=== PATIENT | male | born 1945 | race Caucasian/White ===

== ENCOUNTER 2016-07-02 18:51 | Observation (INO) | payer MEDICARE, OTHER ==
[~2016-07-02] VITALS: Ht 188 cm; Wt 120.5 kg
[2016-07-02 18:59] VITALS: BP_SYST 1; BP_SYST 138; BP_DIAS 135; BP_DIAS 78; PULSE 71; RESP 16; O2SAT 96
--- NOTE | 2016-07-02 19:35 | ED.REPORT ---
HPI-General Illness Date of Service Jul 02, 2016 ED Provider: Dr. Po Bustamante 71 year old male with a hx of esophageal stricture requiring esophageal dilation who presents to the ER with dysphagia after eating salmon and rice last night. Pt has been able to drink water, but has been vomiting anything else including chicken broth and ice cream. Pt was seen last night in the [place] ER. He was given glucagon with no change in symptoms. Pt has not been able to take his medications. He states that the symptoms are similar to previous esophageal stricture. He reports a feeling of blockage in the upper abd. Pt denies SOB, abd pain and CP. Nursing Notes Stated Complaint: CANT GET FOOD DOWN Chief Complaint: General Complaint Nursing Notes Reviewed: Yes Allergies: Coded Allergies: No Known Allergies (Unverified , 07/02/16) Scheduled Gabapentin (Gabapentin) 300 Mg Capsule 300 MG PO BID Miscellaneous Medications Ascorbic Acid (Vitamin C) 100 Mg Tablet 100 MG PO Brimonidine Tartrate/Timolol (Combigan Eye Drops) 5 Ml Drops 5 ML OCULAR Cholecalciferol (Vitamin D3) (Vitamin D) 5,000 Unit Capsule Unknown Dose PO Ferrous Sulfate, Dried (Iron) 159 Mg Tablet.er Unknown Dose PO Multivitamin (Once Daily) 1 Each Tablet 1 EACH PO [place]-3 Fatty Acids (Fish Oil) 500 Mg Capsule. 500 MG PO Travoprost (Travatan Z) 5 Ml Drops 5 ML OCULAR General Time Seen by MD: 19:35 Chief Complaint Other (Dysphagia) Hx Obtained From: Patient Arrived By: Walk-in Sudden in Onset?: Yes Onset Occurred: Yesterday Symptom Duration: Since onset Severity: Current: No pain currently Associated with: Denies: Chest pain, Shortness of breath Exacerbated by: Drinking, Eating Recent Healthcare: Recent doctor visit Similar Sx Previous: Yes Past Medical History Past Medical History Esophageal stricture [place] Past Surgical History Esophageal dilation Reports: Cataract surgery Smoking History Never Smoker Social History Alcohol Use: "Social" Drug Use: Denies drug use Ambulatory Status Independent Review of Systems Full Review of Systems Constitutional: Denies: Fever Respiratory: Denies: Shortness of breath Cardiovascular: Denies: Chest pain GI: Reports: Dysphagia, Vomiting, Denies: Abdominal pain, Hematemesis Complete sys rev & neg: except as marked. Physical Exam Vital Signs Vital Signs Date Time Temp Pulse Resp B/P Pulse Ox O2 Delivery O2 Flow Rate FiO2 07/02/16 18:59 36.8 71 16 138/78 96 Room Air Initial VS: Reviewed General/Constitutional: Well-developed, Well-nourished Head / Eyes: Atraumatic, Normocephalic, PERRL ENT: Mucous membranes moist, Conjunctiva normal, No scleral icterus Neck: Supple, Non-tender, Full range of motion Respiratory: Breath sounds normal, Clear to auscultation, No respiratory distress Cardiovascular: Regular rate & rhythm, Heart sounds normal, Intact distal pulses Abdomen / GI: Soft, Non-tender, No guarding, No rebound, No distention Extremities: Vascular intact, Neuro intact, No swelling, No tenderness Skin: Warm, Dry, No cyanosis Neurologic: Alert, Oriented, Nonfocal Psychiatric: Mood/affect normal, Behavior normal, Normal thought content Interpretation & Diagnostics Lab Results Interpretation Test 07/02/16 20:11 Hold Purple Top Tube Received (Received) Hold Blue Top Tube Received (Received) Hold [place] Top Tube Received (Received) Hold Greco Top Tube Received (Received) General Lab Results Interp 1: Labs reviewed Pulse Oximetry Interpretation Pulse Oximetry: Pulse Ox normal (96), On room air Re-Eval/Medical Decision Time of Eval: 19:52 Re-Evaluation/Progress Note: Unable to tolerate soda. Pt understands and agrees with plan for endoscopy. Consultation : Referral / Consult Name: Johnnie Dias MD Call Returned at: 19:54 Manager Application: Will see patient Note: GI Counseled Regarding: Diagnosis, Lab results Discharge & Departure Primary Impression: Food impaction of esophagus Encounter type: initial encounter Qualified Code: T18.128A - Food in esophagus causing other injury, initial encounter Disposition: ADMITTED TO HOSPITAL (for endoscopy) Discharge Condition All VS Reviewed: Yes Referrals: Deandra Valerio MD (PCP) Kathleenibe Attestation Portions of this note were transcribed by Loreto Beard. I, (Dr. Bustamante) personally performed the history, physical exam and medical decision-making; I reviewed and confirmed the accuracy of the information in the transcribed note. Signed by: Loreto Beard. Myriam, 07/02/16, 2296 copies to: Deandra Valerio MD, Todd P DO Jul 02, 2016 19:35 Loreto Beard Jul 02, 2016 19:51
[2016-07-02] MEDS ORDERED: OMEG500C PO (20:17)
[2016-07-02] MEDS ORDERED: TRAV5DRO OCULAR (20:17)
[2016-07-02] MEDS ORDERED: ASCO100T11 PO (20:17)
[2016-07-02] MEDS ORDERED: FERR159T2 PO (20:17)
[2016-07-02] MEDS ORDERED: BRIM5DRO OCULAR (20:17)
[2016-07-02] MEDS ORDERED: CHOL500051 PO (20:17)
[2016-07-02] MEDS ORDERED: MULT-666 PO (20:17)
[2016-07-02] MEDS ORDERED: GABA-502 PO (20:17)
--- NOTE | 2016-07-02 21:59 | PCM.HPANE ---
Patient Data Date of Service: Jul 02, 2016 Surgeon Admitting Provider: Attending Provider:Johnnie Dias MD Primary Care Physician:Deandra Valerio MD Other Provider: Reason for Visit Esophageal Foreign Body Ht/WT & BMI Weight (Kilograms): 110 Body Mass Index Allergies Coded Allergies: No Known Allergies (Unverified , 07/02/16) Diabetes History Hx Diabetes?: No MRSA MRSA: No Medications Hypertension Medication: No Home Meds Incl Beta [place]: No Reported Medications Ferrous Sulfate, Dried (Iron)159 Mg Tablet.erUnknown Dose PO 07/02/16 Cholecalciferol (Vitamin D3) (Vitamin D)5,000 Unit CapsuleUnknown Dose PO 07/02/16 Brimonidine Tartrate/Timolol (Combigan Eye Drops)5 Ml Drops5 Ml OCULAR 07/02/16 Travoprost (Travatan Z)5 Ml Drops5 Ml OCULAR 07/02/16 [place]-3 Fatty Acids (Fish Oil)500 Mg Capsule.dr500 Mg PO 07/02/16 Multivitamin (Once Daily)1 Each Tablet1 Each PO 07/02/16 Ascorbic Acid (Vitamin C)100 Mg [id number] Mg PO 07/02/16 Gabapentin 300 Mg Ifwjrhl459 Mg PO BID Ref 0 07/02/16 History History of ENT Problems?: Yes HEENT History: Positive for:: Glaucoma Hx of Heart Problems?: Yes Cardiovascular History: Positive for:: Irregular Heartbeat (likely PVC) Denies:: Congestive Heart Failure Hypertension Hx of Respiratory Problem?: Yes (recent URI) Respiratory History: Denies:: Tuberculosis Hx Neurologic Problems?: Yes Neurological History: Positive for:: Peripheral Neuropathy Hx of GI Problems?: Yes (food impaction) Hx of Problems?: Yes (stage III chronic kidney disease) Hx Musculoskeletal Problems?: No Hx of Psycho/Social Problems?: No Hx Surgeries?: Yes (cataract) Other History: Positive for:: Cancer ([place]) Hx Diabetes: No Hx Alcohol Use: YesHx Substance Use: NoHave You Smoked inLast 12 mo: No Stop/Bang Risk Assessment Category Category 1A: Patient has history of documented sleep apnea, and HAS NOT received any narcotic, sedative or anesthesia administration during this stay. Category 1B: Patient has history of documented sleep apnea, and HAS received any narcotic , sedative or anesthesia administration during this stay Category 2: Patient has SUSPECTED Obstructive Sleep Apnea, and HAS received any narcotic , sedative or anesthesia administration during this stay. Category 3: Patient has SUSPECTED Obstructive Sleep Apnea and HAS NOT received narcotic, sedative or anesthesia administration during this stay. Category 4: Outpatient in Procedural Areas with known sleep apnea or who screen positive for High Risk via the STOP/BANG questionnaire. Exam Exam Vital Signs Vital Signs Date Time Temp Pulse Resp B/P Pulse Ox O2 Delivery O2 Flow Rate FiO2 07/02/16 18:59 36.8 71 16 138/78 96 Room Air General Appearance: Alert, Oriented X3, Cooperative HEENT/AIRWAY: MP 3, Neck Movement (Full, [place]), Mouth Opening (Limited) Lungs: Clear to Auscultation, Normal Air Movement, Rhonchorus (recent URI) Heart: Regular Rate/Rhythm, Normal S1, Normal S2 Meds/Labs/Diagnostics Labs Test 07/02/16 20:11 Hold Purple Top Tube Received (Received) Hold Blue Top Tube Received (Received) Hold [place]va Top Tube Received (Received) Hold Greco Top Tube Received (Received) Plan Impression Patient chart reviewed, patient interviewed and anesthestic plan with risks, benefits, and alternatives discussed, and informed consent obtained. NPO Status: presumed full due to food impaction ASA Physical Status: ASA2 Mod Systemic Disease Anesthetic Plan: GA Bene/Risks/Altern/Consents: Yes HP Complete Prior to Induction: Yes Magnus Marshall MD Jul 02, 2016 21:58
[2016-07-02] MEDS ORDERED: Lactated Ringer's 500 ML IV PRN (22:01)
[2016-07-02] MEDS ORDERED: Lactated Ringer's 1,000 ML IV SCH (22:01)
[2016-07-02] MEDS ORDERED: Atropine 0.4 mg/mL Inj IVPUSH PRN (22:05)
[2016-07-02] MEDS ORDERED: Labetalol 5 mg/mL 4 mL Inj IV PRN (22:05)
[2016-07-02] MEDS ORDERED: EPHEDrine Sulfate 50 mg/mL Inj IVPUSH PRN (22:05)
[2016-07-02] MEDS ORDERED: Phenylephrine 10,000 mCg/mL Inj IVPUSH PRN (22:05)
[2016-07-02] MEDS ORDERED: fentaNYL-PF 50 mCg/mL 2 mL Inj IVPUSH PRN (22:05)
[2016-07-02] MEDS ORDERED: MetoCLOpramide 5 mg/mL 2 mL Inj IVPUSH PRN (22:05)
[2016-07-02] MEDS ORDERED: Ondansetron 2 mg/mL 2 mL Inj IVPUSH PRN (22:05)
[2016-07-02] MEDS ORDERED: hydrALAZINE 20 mg/mL Inj IVPUSH PRN (22:05)
[2016-07-02] MEDS ORDERED: HYDROmorphone 1 mg/mL Inj IVPUSH PRN (22:05)
[2016-07-02] MEDS ORDERED: Dexamethasone 4 mg/mL Inj IVPUSH PRN (22:05)
[2016-07-02] MEDS ORDERED: Lactated Ringer's 1,000 ML IV ONE (22:07)
[2016-07-02 22:15] VITALS: BP 151/73; PULSE 73; RESP 18; O2SAT 95
[2016-07-02 23:28] VITALS: BP 111/83; PULSE 90; RESP 14; O2SAT 98
[2016-07-02 23:33] VITALS: BP 150/81; PULSE 87; RESP 15; O2SAT 98
--- NOTE | 2016-07-02 23:36 | PCM.ANEP1 ---
Post Anesthesia Phase 1 PACU Phase 1 Assessment Date of Service: Jul 02, 2016 Vital Signs Vital Signs Date Time Temp Pulse Resp B/P Pulse Ox O2 Delivery O2 Flow Rate FiO2 07/02/16 23:33 87 15 150/81 98 Simple Mask 07/02/16 23:28 36.4 90 14 111/83 98 Simple Mask 07/02/16 22:15 73 18 151/73 95 Room Air 07/02/16 18:59 36.8 71 16 138/78 96 Room Air Anesthetic Administered: GA Level of Alertness: Awake, talking WILLIS's with Equal Strength: Yes Pain: No Nausea or Vomiting: No Oxygen Delivery: Simple Mask Lungs: Normal Air Movement, Rhonchorus (recent URI) Magnus Marshall MD Jul 02, 2016 23:36
--- NOTE | 2016-07-02 23:41 | PCM.ANEP2 ---
Post Anesthesia Evaluation ASA/CMS Post Anesthesia Date of Service: Jul 02, 2016 VS in Patient's Normal Range?: Yes Resp Stable; Airway Patent?: Yes CV Function & Hydration Stable: Yes Mental Status Recovered?: Yes Pain control Satisfactory?: Yes N/V Control Satisfactory?: Yes Magnus Marshall MD Jul 02, 2016 23:41
[2016-07-02 23:46] VITALS: BP 151/77; PULSE 90; RESP 21; O2SAT 94
[2016-07-02] MEDS ORDERED: fentaNYL-PF 50 mCg/mL 2 mL Inj ONE (23:55)
[2016-07-02] MEDS ORDERED: Propofol 10,000 mCg/mL 20 mL Inj ONE (23:55)
[2016-07-02] MEDS ORDERED: Lidocaine PF 1% 30 mL Inj ONE (23:55)
[2016-07-02] MEDS ORDERED: Succinylcholine Chloride 20 mg/mL 5 mL Inj ONE (23:55)
--- NOTE | 2016-07-02 23:55 | NUR ---
New admit Pt arrived [place] [facility] at 2355 via bed transport. Alert and oriented x 4. Excellent Historian. Denies pain, chest pain, shortness of breath, n/v/d and gi upset. RT hand IV D/C with catheter intact. O2 97% 1L NC Urinal provided and Pt educated on using call light for safety due to possible anesthesia effects. Pt seems to have a clear understanding of risks and benefits. Will continue to monitor for side effects to anesthesia, resp. distress, shortness of breath, and pain.
[2016-07-03 00:17] VITALS: BP 133/76; PULSE 82; RESP 20; O2SAT 97
[2016-07-03] MEDS ORDERED: Ondansetron 2 mg/mL 2 mL Inj IVPUSH PRN (00:30)
[2016-07-03] MEDS ORDERED: Alum-Mag Hydrox-Simeth 30 mL Suspension PO PRN (00:30)
[2016-07-03] MEDS ORDERED: Polyethylene Glycol (PEG) 17 Gm Powder PO PRN (00:30)
--- NOTE | 2016-07-03 00:35 | CONS ---
[address] [address] CONSULTATION REPORT PATIENT: FRANCISCO STARKS : 1945 MR#: [id number] ADMIT: 07/02/2016 JOB ID: [id number] DATE OF SERVICE: 07/02/2016 REASON FOR CONSULTATION: Food impaction. HISTORY OF PRESENT ILLNESS: This is a 71-year-old, male, with a history of peptic ulcer disease, who presents for consultation for food impaction. The patient states at 9 p.m. yesterday, he ate salmon and rice, and was unable to swallow anything after that. The patient then presents to the emergency department for further evaluation. The patient had an EGD and colonoscopy performed in 2012, which was normal per the patient. I have no records. The patient states that he does have a family history of colon cancer, father diagnosed at the age of 80, but no inflammatory bowel disease, or celiac disease impairment. The patient denies rectal bleeding, positive for nausea, vomiting. No chest pain, shortness of breath, abdominal pain, skin rashes or joint pain. PAST MEDICAL HISTORY: As stated above. PAST SURGERIES: None. ALLERGIES: No known drug allergies. MEDICATIONS: Unknown. SOCIAL HISTORY: The patient states that he drinks alcohol, a fifth, a pint one time per month, but no smoking. No IV drug use. FAMILY HISTORY: Positive for colon cancer, father diagnosed at age of 80. No inflammatory bowel disease, or celiac disease. REVIEW OF SYSTEMS: The patient denies headache, blurred vision. Positive for nausea and vomiting. No chest pain, shortness of breath, abdominal pain, skin rash, joint pain. PHYSICAL EXAMINATION: Vital signs upon presentation: Temperature 36.8, pulse 71, blood pressure 138/78, respiratory rate 16. Satting 96% on room air. General: Head: No scars. Anicteric. Throat supple. Lungs: Clear to auscultation bilaterally. Cardiovascular: Regular rhythm and rate. Abdomen: Soft, nondistended, nontender. Normal bowel sounds. Extremities: No cyanosis, clubbing or edema. LABORATORY DATA: Pending. ASSESSMENT AND PLAN: A 71-year-old, male, with history of peptic ulcer disease, presents for food impaction with salmon and rice. RECOMMENDATIONS: 1. NPO. 2. EGD with anesthesia to be performed today.
[2016-07-03 00:49] LABS: BASOPHILS % (AUTO) 0.5 % (0-3); EOSINOPHILS % (AUTO) 2.1 % (0-5); MONOCYTES % (AUTO) 14.4 % (4-12); Mean Corpuscular Hemoglobin 29.6 pg (27.0-35.0); Mean Corpuscular Volume 88.1 fL (81-100); NEUTROPHILS % (AUTO) 64.1 % (40-74); Platelet Count 143 bil/L (150-400)
--- NOTE | 2016-07-03 00:54 | ENDO ---
[address] [address] ENDOSCOPY PROCEDURE PATIENT: FRANCISCO STARKS : 1945 MR#: [id number] ADMIT: 07/02/2016 JOB ID: [id number] OPERATION: Esophagogastroduodenoscopy with biopsy. PREOPERATIVE DIAGNOSIS(ES): Food impaction. POSTOPERATIVE DIAGNOSIS(ES): 1. [place] was seen in the distal esophagus, which was removed by [place] [employer] and pushed into the stomach. 2. Mild nonerosive gastritis, status post biopsy. 3. Status post Mark fundoplication. ANESTHESIA: General anesthesia. COMPLICATIONS: None. BLOOD LOSS: Minimal. DESCRIPTION OF PROCEDURE: After risks and benefits were explained to the patient, informed consent was obtained. After anesthesia was administered, the upper endoscope was inserted into the mouth, intubating the esophagus, the stomach and 2nd portion of the duodenum. Mucosa carefully examined. After the procedure was done, the scope was withdrawn and the procedure terminated. FINDINGS: Upon entering the esophagus, there was a large amount of salmon that was seen in the distal esophagus. This was removed by [place] [employer] and pushed into the stomach with ease. The Z-line was located 40 cm from incisors. Upon entering the stomach, there is mild nonerosive gastritis. No masses, ulcers, or lesions were seen. Retroflexion showed status post Mark fundoplication from prior surgery. Duodenal bulb, first and second portion were normal. Biopsies taken in the antrum, body of the stomach, mid and distal esophagus. IMPRESSIONS: 1. [place] seen in the distal esophagus which was removed by [place] [employer] and pushed into the stomach with ease. 2. Mild nonerosive gastritis. 3. Mark fundoplication was seen retroflexion from prior surgery. RECOMMENDATIONS: 1. Await pathology results. 2. Given the fact that the patient has nobody to drive him home, the patient will be admitted to the hospital service for observation overnight. Okay to discharge home from a GI standpoint in the morning given the fact the patient received general anesthesia during the procedure. 3. The patient is to follow up with his primary care doctor. SERAFIN
--- NOTE | 2016-07-03 02:32 | PCM.HPMED ---
Subjective Date of Service Jul 03, 2016 Primary Provider: Admitting Physician: Johnnie Dias MD Primary Care Physician: Deandra Valerio MD Attending Physician: Johnnie Dias MD Admit Status: From the Emergency Department, 23-Hour Observation Chief Complaint: Dysphagia History of Present Illness: Patient is a 71 year old male with history of peptic ulcer disease and esophageal stricture presented to [facility] ER with c/o dysphagia after eating salmon and rice for dinner last night. Since then patient has been able to drink water but has not been able to tolerate solids even chicken broth and ice cream. He is also not able to take his medications. Patient was seen last night in the [place] ER. He was given glucagon with no change in symptoms. Patient reports having the same symptoms during the previous esophageal stricture. Dr. Dias was consulted who diagnosed the patient with food impaction. Patient underwent esophagogastroduodenoscopy with biopsy with anesthesia. Review of Systems: A comprehensive review of systems was conducted with the patient and found to be negative except as above in the History of Present Illness. Allergies Coded Allergies: No Known Allergies (Unverified , 07/02/16) Home Medications Ferrous Sulfate, Dried (Iron)159 Mg Tablet.erUnknown Dose PO 07/02/16 Cholecalciferol (Vitamin D3) (Vitamin D)5,000 Unit CapsuleUnknown Dose PO 07/02/16 Brimonidine Tartrate/Timolol (Combigan Eye Drops)5 Ml Drops5 Ml OCULAR 07/02/16 Travoprost (Travatan Z)5 Ml Drops5 Ml OCULAR 07/02/16 [place]-3 Fatty Acids (Fish Oil)500 Mg Capsule.dr500 Mg PO 07/02/16 Multivitamin (Once Daily)1 Each Tablet1 Each PO 07/02/16 Ascorbic Acid (Vitamin C)100 Mg [id number] Mg PO 07/02/16 Gabapentin 300 Mg Llqtclu754 Mg PO BID Ref 0 07/02/16 PMH Peptic ulcer disease Esophageal stricture Surgical History Esophageal dialation Mark fundoplication Cataract surgery Left knee surgery Carotid artery laceration surgery Collarbone surgery Family History Significant for colon cancer in the father, prostate cancer in the brother, breast cancer in the mother and grandmother Social History Hx Alcohol Use: Yes Alcoholic Drinks Per Day: 5/8 per month Hx Substance Use: No Hx Tobacco Use: No Smoking Status: Former Smoker, Never Smoker Living Arrangement: Other (Lives by himself ) Exam Vital Signs Vital Sign - Last Date Time Temp Pulse Resp B/P Pulse Ox O2 Delivery O2 Flow Rate FiO2 07/03/16 00:17 36.8 82 20 133/76 97 Nasal Cannula 2.00 Intake and Output 07/02/16 07/02/16 07/03/16 Cumulative From/Thru 15:00 23:00 07:00 07/02/16 22:28 - 07/03/16 00:17 Intake Total 400 ml 400 ml Balance 400 ml 400 ml Intake IV Total 400 ml 400 ml Exam General: Alert, Cooperative Head: Normal Eyes: PERRLA, EOMI, Scleral Anicteric Nose: Mucous Membr Moist/[place] Mouth: Mucous Membr Moist/[place] Neck: Supple Chest & Lungs: Decreased breath sounds bilaterally. Clear to auscultation bilaterally. No rales, rhonchi, or wheezing Cardiovascular: Regular Rate/Rhythm Pulses: Normal carotid, radial, femoral, DP, PT Abdomen: Non-tender, Non-distended, Normoactive bowel tones, Soft Extremities: No cyanosis/clubbing/, 1+ edema bilat Neurological: Grossly Neurologically Intact, Normal Speech Lab and Diagnostics Result Diagram: 07/02/16201007/02/162010 Additional Diagnostics: EGD with anesthesia performed by Dr. Dias revealed food impaction in the distal esophagus (removed by [place]), mild nonerosive gastritis Assessment & Plan This is a 71 year old male with history of esophageal stricture who drove himself to the hospital with main complaint of dysphagia after eating dinner last night. Patient has been diagnosed with food impaction and endoscopy with anesthesia has been performed. Patient admitted for 23 hour observation r/ t anesthesia sedation. # Food impaction of esophagus, acute, present on admission - Esophagogastroduodenoscopy with biopsy under general anesthesia performed by Dr. Dias - Patient tolerated procedure well - Observation overnight - D/c home in the morning # Peptic ulcer disease, chronic, stable Pain Evaluation: Adequate Pain Control GI Prophylaxis: H2 jamie, Proton Pump Inhibitor, Not indicated VTE Prophylaxis: SCDs Resuscitation Status: CPR: Attempt Resuscitation Attending Statement The patient was seen and examined together with house staff on 07/03/2016 and I agree with the history, exam and plan as outlined in the note above. copies to: Deandra Valerio MD, Oksana S DO Jul 03, 2016 02:32 Henny Lee DO Jul 03, 2016 03:30
[2016-07-03 05:15] VITALS: BP 156/77; PULSE 88; RESP 16; O2SAT 97
[2016-07-03 08:11] VITALS: BP 157/60; PULSE 95; RESP 18; O2SAT 96
--- NOTE | 2016-07-03 08:17 | NUR ---
Elevated Temp Contacted Dr. Ibanez with the following cook page: Patient's current temp is 37.6. Patient is also questioning when he will be discharged. Please advise. Thank you. Zainab GLOVER
--- NOTE | 2016-07-03 10:30 | NUR ---
Morning Rounds Staffed patient's case with Dr. Liriano and case management. Dr. Liriano stated patient will be discharge today.
--- NOTE | 2016-07-03 10:49 | PCM.PNSURG ---
Subjective Date of Service: Jul 03, 2016 Date of Service: Jul 03, 2016 Visit Information: Subjective: no acute events overnight. Pt able to take PO intake without difficulty Postop General: No Complaints Objective Vital Sign- Last 8 Hours Date Time Temp Pulse Resp B/P Pulse Ox O2 Delivery O2 Flow Rate FiO2 07/03/16 08:11 37.6 95 18 157/60 96 Room Air 07/03/16 05:15 37.1 88 16 156/77 97 Nasal Cannula 1.00 Intake and Output- Last 8 Hour 07/03/16 Cumulative From/Thru 07:00 07/02/16 22:28 - 07/03/16 06:35 Intake Total 400 ml Balance 400 ml Intake IV Total 400 ml # Voids 1 1 General: Oriented X3 Neck: Supple Lungs: Clear to Auscultation Heart: Exam Unremarkable Abdomen: Benign, Soft, Non-tender, Non-distended, Normoactive bowel tones Extremities: Distal Pulses Palpable Result Diagram: 07/02/16201007/02/162010 Assessment & Plan Impression A 71-year-old, male, with history of peptic ulcer disease, presents for food impaction with salmon and rice. s/p egd/07/02/16- IMPRESSIONS: 1. [place] seen in the distal esophagus which was removed by [place] [employer] and pushed into the stomach with ease. 2. Mild nonerosive gastritis. 3. Mark fundoplication was seen retroflexion from prior surgery. Recs:: 1. Await pathology results. My office will call pt and notify pt results. 2. d/c home today from gi standpoint 3. The patient is to follow up with his primary care doctor. will sign off Problems: VTE Prophylaxis: SCDs Resuscitation Status: CPR: Attempt Resuscitation Johnnie Dias MD Jul 03, 2016 10:49
--- NOTE | 2016-07-03 10:53 | PCM.DIMED ---
Discharge Instructions Date of Service Jul 03, 2016 Dates of Hospitalization Jul 02, 2016 at 23:54 Discharge Diagnosis Discharge Diagnosis 1. Esophageal food impaction s/p endoscopic removal, Peptic ulcer disease Esophageal stricture Diet No restrictions Activity No restrictions Call your provider Vomitting Patient Instructions Follow up with gastroenterology within one week. Primary care doctor in one week Follow-up plan Follow up with gastroenterology within one week. Primary care doctor in one week Follow-up with PCP in: 1 week (PRimary care doctor and gastroenterology ) Johnnie Liriano MD Jul 03, 2016 10:53
--- NOTE | 2016-07-03 11:00 | NUR ---
Discharge Note Patient given all discharge instructions and information. Patient gathered all belongings from room at this time and was then transported to his own vehicle via wheelchair.
--- NOTE | 2016-07-03 11:00 | NUR ---
[place] explained and signed.
--- NOTE | 2016-07-03 13:13 | NUR ---
Social Work: Initial Assessment / Discharge Data: Pt is a 71 y/o male admitted for esophageal foreign body. Pt's PCP is Dr Valerio, pt's insurance is [employer] federal employee plan with Medicare. EMR reviewed, readmit score not listed. MUCK HAULER met with pt at bedside, role explained. Pt states that he lives in a two story home with his s/o where he uses no DME. Pt has no hx of HH or SNF, no LTC or VA benefits, and is not a caregiver. Pt plans to drive himself home. No further d/c needs. Assessment: Pt who is independent at baseline. Plan: Pt discharged home via POV. No further d/c needs. KJ Barker Addendum: 07/03/16 at 1316 by HIRAL OCHOA SS Amended: Links added.
--- NOTE | 2016-07-03 18:20 | PCM.DC.MED ---
Discharge Summary Date of Service Jul 03, 2016 Dates of Hospitalization Date of Hospital Admission Jul 02, 2016 at 23:54 Date of Discharge: Jul 03, 2016 Providers: Admitting Physician: Johnnie Dias MD Primary Care Physician: Deandra Valerio MD Attending Physician: Johnnie Dias MD Diagnosis at Time of Discharge Diagnosis at Time of Discharge 1. Esophageal food impaction s/p endoscopic removal, Peptic ulcer disease Esophageal stricture Consultations Gastroenterology Procedures Other Diagnostics EGD with anesthesia performed by Dr. Dias revealed food impaction in the distal esophagus (removed by [employer]), mild nonerosive gastritis Brief History Patient is a 71 year old male with history of peptic ulcer disease and esophageal stricture presented to [facility] ER with c/o dysphagia after eating salmon and rice for dinner last night. Since then patient has been able to drink water but has not been able to tolerate solids even chicken broth and ice cream. He is also not able to take his medications. Patient was seen last night in the [place] ER. He was given glucagon with no change in symptoms. Patient reports having the same symptoms during the previous esophageal stricture. Dr. Dias was consulted who diagnosed the patient with food impaction. Patient underwent esophagogastroduodenoscopy with biopsy with anesthesia. Hospital Course This is a 71 year old male with history of esophageal stricture who drove himself to the hospital with main complaint of dysphagia after eating dinner last night. Patient has been diagnosed with food impaction and endoscopy with anesthesia has been performed. Patient admitted for 23 hour observation r/ t anesthesia sedation. # Food impaction of esophagus, acute, present on admission - Esophagogastroduodenoscopy with biopsy under general anesthesia performed by Dr. Dias - Patient tolerated procedure well Patient seen in the morning prior discharge. He was able to tolerate breakfast without any issues . He is discharged home and will follow up with PCP and gastroenterology in one week Exam Vital Signs (Last) Date Time Temp Pulse Resp B/P Pulse Ox O2 Delivery O2 Flow Rate FiO2 07/03/16 08:11 37.6 95 18 157/60 96 Room Air 07/03/16 05:15 1.00 Exam Neck : Supple, no JVD. no stridor Chest : normal respiratory effort Lung : Clear Bilaterally. No wheezing Heart : S1S2, RRR Abdomen : Beign Ext : no edema, no cyanosis Test 07/02/16 20:11 White Blood Count 8.2th/mm3 (3.8-10.1) Red Blood Count 5.03mil/mm3 (4.40-5.80) Hemoglobin 14.9g/dL (13.8-17.2) Hematocrit 44.3% (41.0-50.0) Mean Corpuscular Volume 88.1fL (81-100) Mean Corpuscular Hemoglobin 29.6pg (27.0-35.0) Mean Corpuscular Hemoglobin Concent 33.6% (32.0-37.0) Red Cell Distribution Width 13.6% (12.3-15.4) Platelet Count 143bil/L (150-400) Neutrophils (%) (Auto) 64.1% (40-74) Lymphocytes (%) (Auto) 18.7% (14-46) Monocytes (%) (Auto) 14.4% (4-12) Eosinophils (%) (Auto) 2.1% (0-5) Basophils (%) (Auto) 0.5% (0-3) Hold Purple Top Tube Received (Received) Hold Blue Top Tube Received (Received) Sodium Level 143mEq/L (134-144) Potassium Level 4.2mEq/L (3.5-5.2) Chloride Level 106mEq/L (97-108) Carbon Dioxide Level 23mmol/L (18-29) Blood Urea Nitrogen 24mg/dL (8-27) Creatinine 1.46mg/dL (0.76-1.27) Estimat Glomerular Filtration Rate 50mL/min (>59) Glucose Level 98mg/dL (60-99) Calcium Level 9.8mg/dL (8.5-10.1) Hold Douglas Top Tube Received (Received) Hold Greco Top Tube Received (Received) Discharge Medications Discharge Medications Gabapentin (Gabapentin) 300 Mg Capsule 300 MG PO BID (Reported) Miscellaneous Medications Ascorbic Acid (Vitamin C) 100 Mg Tablet 100 MG PO (Reported) Brimonidine Tartrate/Timolol (Combigan Eye Drops) 5 Ml Drops 5 ML OCULAR ( Reported) Cholecalciferol (Vitamin D3) (Vitamin D) 5,000 Unit Capsule Unknown Dose PO ( Reported) Ferrous Sulfate, Dried (Iron) 159 Mg Tablet.er Unknown Dose PO (Reported) Multivitamin (Once Daily) 1 Each Tablet 1 EACH PO (Reported) Ramsey-3 Fatty Acids (Fish Oil) 500 Mg Capsule.dr 500 MG PO (Reported) Travoprost (Travatan Z) 5 Ml Drops 5 ML OCULAR (Reported) Followup Plan Disposition: Home Follow-up plan Follow up with gastroenterology within one week. Primary care doctor in one week Discharge Diet: No restrictions Discharge Activity: No restrictions Patient Instructions Follow up with gastroenterology within one week. Primary care doctor in one week Follow-up with PCP in: 1 week (PRimary care doctor and gastroenterology ) Time spent 25 minutes Johnnie Liriano MD Jul 03, 2016 18:20
--- NOTE | 2016-07-05 11:03 | PATH ---
SURGICAL PATHOLOGY Attending Physician:Johnnie Dias MD CASE STATUS: Signed Out PATIENT NAME: FRANCISCO STARKS JR PID: [id number] : 1945 DATE COLLECTED:07/02/2016 00:00 SPECIMEN: 1: Stomach, Antrum, Biopsy 2: Gastric, Biopsy 3: Esophagus, Biopsy 4: Esophagus, Biopsy CLINICAL HISTORY: 1.ANTRUM BX 2.GASTRIC BODY BX 3.DISTAL ESOPHAGUS BX 4.MID ESOPHAGUS BX FINAL DIAGNOSIS: 1.GASTRIC ANTRUM BIOPSY: MILD CHRONIC GASTRITIS INVOLVING ANTRAL MUCOSA. Negative for evidence of Helicobacter. Negative for intestinal metaplasia. Negative for dysplasia and malignancy. 2.GASTRIC BODY BIOPSY: FOCAL MINIMAL CHRONIC GASTRITIS INVOLVING FUNDIC MUCOSA. Negative for evidence of Helicobacter. Negative for intestinal metaplasia. Negative for dysplasia and malignancy. 3.DISTAL ESOPHAGUS BIOPSY: FRAGMENTS OF SQUAMOUS EPITHELIUM WITH REACTIVE EPITHELIAL CHANGES AND RARE INTRAEPITHELIAL EOSINOPHILS CONSISTENT WITH CHANGES OF CHRONIC REFLUX. No gastric-type epithelium identified. Negative for dysplasia and malignancy. 4.MID ESOPHAGUS BIOPSY: FRAGMENTS OF SQUAMOUS EPITHELIUM, NEGATIVE FOR ATYPIA. Eosinophils are not increased. ICD10 code K29.70 GROSS DESCRIPTION: The specimen is received in four formalin filled containers labeled with the patient's name. 1). The specimen is sublabeled "antrum" and consists of 2 portions of tissue which aggregate to 0.3 x 0.3 x 0.2 CM. The specimen is entirely submitted in cassettes 1A. 2). The specimen has sublabeled "gastric body" and consists of 3 portions of tissue which aggregate to 0.3 x 0.3 x 0.2 CM. The specimen is entirely submitted in cassette 2A. 3). The specimen is sublabeled "distal esophagus" and consists of 2 portions of tissue which aggregate to 0.3 x 0.2 x 0.2 CM. The specimen is entirely submitted in cassette 3A. 4). The specimen is sublabeled "mid esophageal" and consists of 2 portions of tissue which aggregate to 0.3 x 0.2 x 0.2 CM. The specimen is entirely submitted in cassette 4A. 07/04/2016 [facility] MICRO DESCRIPTION: See diagnosis. ICD-9 CODES: CPT CODES: 1: 61460 2: 07412 3: 97657 4: 89338 Electronically Signed Out Leonard Bradshaw MD [facility] [address], [place] [address] Technical component performed at [facility], [address], [place], [address]
== END 2016-07-03 11:06 | disposition home or self-care (01) ==
LOC: SED 18:51 → END 21:22 → MOC 22:31
PROVIDERS: ADMIT Internal Medicine Gastroenterology; ATTEND Internal Medicine Gastroenterology
DX: T18.128A Food in esophagus causing other injury, initial encounter (principal); K29.50 Unspecified chronic gastritis without bleeding; K21.9 Gastro-esophageal reflux disease without esophagitis; R13.10 Dysphagia, unspecified; C88.0 Waldenstrom macroglobulinemia; N18.3 Chronic kidney disease, stage 3 (moderate); G62.9 Polyneuropathy, unspecified
CPT/HCPCS: 43239; 43247; 80048; 85025; 88305; 99285; G0378; J0330; J2250; J3010; J7120